=== PATIENT | male | born 1980 | race Hispanic/Latino ===

== ENCOUNTER 2023-07-19 12:17 | Emergency (ER) | payer SELFPAY ==
[2023-07-19] MEDS ORDERED: Ketorolac Tromethamine 30 MG (1 mL) VIAL ONE (12:28)
[2023-07-19] MEDS ORDERED: Morphine 4 MG/ML VIAL ONE (12:28)
[2023-07-19] MEDS ORDERED: PROPOFOL 20 ML ONE (13:44)
== END 2023-07-19 16:25 | disposition home or self-care (01) ==
LOC: ERS 12:17
DX: S32.422A Displaced fracture of posterior wall of left acetabulum, initial encounter for closed fracture (principal); S72.052A Unspecified fracture of head of left femur, initial encounter for closed fracture; S73.015A Posterior dislocation of left hip, initial encounter; W01.0XXA Fall on same level from slipping, tripping and stumbling without subsequent striking against object, initial encounter
CPT/HCPCS: 27250; 96374; 96375; J1885; J2270; J2704